=== PATIENT | female | born 1945 | race Caucasian/White ===

== ENCOUNTER → 2017-02-24 | Outpatient (CLI) | payer MEDICARE ==
[~2017-02-24] MED LIST: SYNTHROID50 MCG PO
--- NOTE | 2017-02-24 11:51 | Diagnostic Imaging Report ---
PROCEDURE: Frontal and lateral views of the chest. COMPARISON: None. INDICATIONS: COUGH, PNEUMONIA FINDINGS: Lines/tubes: None. Lungs: Mild bilateral perihilar and peribronchial thickening and perihilar streaky densities. 6 mm noncalcified nodule in the right lung base laterally. Pleura: There is no pleural effusion or pneumothorax. Heart and mediastinum: The cardiac silhouette is mildly enlarged. calcification of aortic arch. Bones: No acute bony abnormality. DJD of glenohumeral joint bilaterally. Multilevel spondylosis of the thoracic spine. IMPRESSION: 1. Findings suggestive of a mild infection versus reactive airway disease. No consolidative pneumonia. 2. 6 mm noncalcified nodule in the right lung base. Recommend followup chest PA and lateral views in 3 months to evaluate stability. Caitlin Rosenberg M.D. Dictated by: Caitlin Rosenberg M.D. on 02/24/2017 at 12:00 Electronically approved by: Caitlin Rosenberg M.D. on 02/24/2017 at 12:00
== END ==
LOC: RAD 10:37
PROVIDERS: ATTEND Internal Medicine
DX: R05 Cough (principal)
CPT/HCPCS: 71020

== ENCOUNTER 2017-03-04 10:47 | Inpatient (IN) | payer MEDICARE, OTHER ==
[~2017-03-04] VITALS: Ht 167.6 cm; Wt 74.8 kg
[2017-03-04 13:01] LABS: INR 0.9; PROTHROMBIN TIME 12.6 seconds (11.9-14.5)
[2017-03-04 13:02] LABS: PARTIAL THROMBOPLASTIN TIME 20.6 seconds (23.8-35.5)
[2017-03-04 13:21] LABS: CREATINE KINASE MB 0.5 ng/mL (0.00-5.00)
[2017-03-04 13:37] LABS: BILIRUBIN,URINE NEGATIVE (NEGATIVE); KETONES,URINE NEGATIVE (NEGATIVE); LEUKOCYTE ESTERASE ,URINE 2+ (NEGATIVE); NITRITE,URINE NEGATIVE (NEGATIVE); URINE UROBILINOGEN 0.2 mg/dL (0.2 - 1)
[2017-03-04 13:41] LABS: CLARITY,URINE CLOUDY (CLEAR); COLOR,URINE YELLOW (YELLOW); PROTEIN,URINE DIPSTICK 1+ (NEGATIVE)
[2017-03-04 13:42] LABS: AMORPHOUS SEDIMENT,URINE RARE (FEW); BACTERIA,URINE RARE /HPF; EPITHELIAL CELLS,URINE FEW /LPF; MUCUS,URINE RARE (RARE)
[2017-03-04 14:35] LABS: BASOPHILS % 0.3 % (0.0-1.0); EOSINOPHILS % 0.2 % (0.0-6.0); HEMATOCRIT 42.6 % (34.2-44.1); HEMOGLOBIN 14.7 g/dL (12.0-16.0); LYMPHOCYTES # (AUTO) 2.4 (1.0-3.2); LYMPHOCYTES % 17.8 % (18.0-39.1); MEAN CORPUSCULAR HEMOGLOBIN 28.5 pg (28-32); MEAN CORPUSCULAR HGB CONC 34.5 g/dL (31-35); MEAN CORPUSCULAR VOLUME 82.7 fL (81-99); MONOCYTES # (AUTO) 0.6 (0.2-0.8); MONOCYTES % 4.5 % (4.4-11.3); NEUTROPHILS # (AUTO) 10.5 (2.1-6.9); NEUTROPHILS % 76.7 % (38.7-80.0); PLATELET COUNT 278 x10e3/uL (140-360); RED BLOOD COUNT 5.15 x10e6/uL (3.6-5.1); RED CELL DISTRIBUTION WIDTH 13.5 % (11.7-14.4)
[2017-03-04 14:45] LABS: ALANINE AMINOTRANSFERASE 21 IU/L (0-55); ALBUMIN 3.5 g/dL (3.5-5.0); ALBUMIN/GLOBULIN RATIO 0.8 (0.8-2.0); ALKALINE PHOSPHATASE 104 IU/L (40-150); ANION GAP 16.6 mmol/L (8-16); BLOOD UREA NITROGEN 17 mg/dL (7-26); BUN/CREATININE RATIO 23 (6-25); CALCIUM 9.8 mg/dL (8.4-10.2); CARBON DIOXIDE 24 mmol/L (22-29); CHLORIDE 104 mmol/L (98-107); CREATININE, SERUM 0.74 mg/dL (0.57-1.11); EST GLOMERULAR FILTRATION RATE > 60 ML/MIN (60-); GLUCOSE 181 mg/dL (74-118); POTASSIUM 3.6 mmol/L (3.5-5.1); SODIUM 141 mmol/L (136-145)
--- NOTE | 2017-03-04 15:58 | Diagnostic Imaging Report ---
PROCEDURE: CT scan of the chest WITH intravenous contrast, using standard protocol. TECHNIQUE: The chest was scanned utilizing a multidetector helical scanner from the lung apex through the level of the adrenal glands after the IV administration of 100 cc of Isovue 370. Coronal and sagittal multiplanar reformations were obtained. COMPARISON: Patients [facility], , CHEST 2 VIEWS, 02/24/2017, 11:13. INDICATIONS: NODULE FINDINGS: Lines/tubes: None. Lungs and Airways: 5 mm calcified granuloma in the lateral right lower lobe, corresponding to the abnormality seen on recent chest x-ray. No pulmonary nodules, masses, or consolidation. Linear opacities in the lingula and posterior right middle lobe likely represents scarring (Series 3, images 68 and 75). Airways are clear, without endobronchial lesions. Pleura: The pleural spaces are clear. Heart and mediastinum: Moderate enlargement of the thyroid gland, with heterogeneous enhancement (for example, series 2, image 10). Borderline to mild cardiomegaly. Atherosclerotic calcification of the coronary arteries and thoracic aorta. Aorta is not aneurysmal. Main pulmonary artery is normal in caliber. Lymph nodes: No mediastinal, hilar, or axillary adenopathy. Abdomen: Limited contrast-enhanced views of the upper abdomen show no abnormality within the visualized spleen or left kidney. Diffuse hepatic steatosis. No focal lesions. The visualized portions of the adrenal glands are normal. Bones: No aggressive lytic lesion. Multilevel degenerative disc changes in the thoracic spine. Sclerotic nonaggressive appearing foci in the right humeral head, which may reflect bone islands or sequela of prior surgery or trauma. IMPRESSION: 1. 5 mm calcified nodule in the lateral right lower lobe, corresponding to the abnormalities seen on recent chest x-ray. Lungs are otherwise unremarkable. 2. Diffuse hepatic steatosis. 3. Borderline to mild cardiomegaly. Callum Tavarez M.D. Dictated by: Callum Tavarez M.D. on 03/04/2017 at 16:06 Electronically approved by: Callum Tavarez M.D. on 03/04/2017 at 16:06
--- NOTE | 2017-03-04 16:35 | Diagnostic Imaging Report ---
History:Dizziness, right eye droop Comparison studies:None Technique: Axial images were obtained from the skull base to the vertex. Coronal and sagittal images reconstructed from the axial data. Intravenous contrast: None Findings: Scalp/skull: No abnormalities. Extra-axial spaces: No masses. No fluid collections. Brain sulci: Mildly prominent. Ventricles: Mild compensatory dilatation. No hydrocephalus. Parenchyma: A vague 7 mm round hypodense focus in the medial aspect of the tegmentum of the right midbrain is not associated with hemorrhage, calcifications or mass effect. Subtle hypodensities in the supratentorial white matter are small vessel ischemic changes. No masses, hemorrhage, acute or chronic cortical vascular insults. Sellar/suprasellar region: No abnormalities. Craniocervical junction: Patent foramen magnum. No Chiari one malformation. Incidental findings: Atherosclerotic calcifications in the carotid siphons . Impression: Recommend a brain MRI with and without contrast to determine whether a 7 mm round hypodense focus in the medial aspect of the tegmentum of the right is an acute vascular insult. Chronic findings: 1. Mild generalized volume loss. 2. Mild supratentorial white matter small vessel ischemic changes. Signed by: Dr. Portillo Amin M.D. on 03/04/2017 4:32 PM
[2017-03-04] MEDS ORDERED: ONDANSETRON HCL INJ 2 MG/ML VIAL IV PRN (20:45)
[2017-03-04] MEDS ORDERED: IOPAMIDOL 370 MG/ML 200 ML INFUS..BTL INJ ONE (21:34)
[2017-03-04] MEDS ORDERED: SODIUM CHLORIDE 0.9% 50ML 50 ML ONE (21:34)
[2017-03-05] VITALS (7 sets, daily range): BP systolic 151–170; BP diastolic 72–89
[2017-03-05] MEDS: SODIUM CHLORIDE 0.9% 1000ML 1,000 ML IV SCH ×4 (01:58→20:31)
[2017-03-05] MEDS ORDERED: SYNTHROID50 MCG PO (03:48)
--- NOTE | 2017-03-05 07:47 | History and Physical ---
This is a 72-year-old female that comes in with failed outpatient treatment of bronchitis, came in and was found to have some right eye ptosis too. CT scan showed a mass affect on the brain. Patient admitted for MRI of the brain with and without contrast, and also bronchitis treatment and also found to have some UTI. PAST MEDICAL HISTORY: History of hypothyroidism. Patient takes levothyroxine and Synthroid 50 mcg a day. That is the only medication she takes. No other medical history. SURGICAL HISTORY: History of ulnar and radius break, joint replacement of right hip in 2001, and she also has macular degeneration of the left eye. Patient's other surgeries include hysterectomy and orthopedic surgeries. FAMILY HISTORY: History of sister with cardiac disease, otherwise normal. REVIEW OF SYSTEMS: Negative for chest pain. Positive for shortness of breath. Positive for wheezing. Positive for coughing. No nausea, vomiting or diarrhea. No constipation. No rectal bleeding. No hematochezia and no hematemesis. No diplopia. No blurry vision. Positive for ptosis on the right eye. PHYSICAL EXAMINATION GENERAL: Patient is alert and oriented times 3. VITAL SIGNS: Temperature is 97.3, blood pressure 157/76, pulse ox 90% on room air, respiratory rate 18. HEENT: Normocephalic and atraumatic. Right eye droop. Pupils equal, round and reactive to light and accommodation. CV: S1 and S2 normal. Regular rate and rhythm. ABDOMEN: Nontender and nondistended. LUNGS: Positive for few inspiratory wheezes. ABDOMEN: Nontender and nondistended. EXTREMITIES: No clubbing. No cyanosis. No edema. NEUROLOGICAL: Cranial nerves are normal. Normal strength in all muscle groups. Reflexes are normal. Positive for ptosis of the right eye. LABORATORY FINDINGS: White count is 13,000 with a hemoglobin of 14.7, hematocrit 42, lymphocyte count of 17.2. Chemistry shows sodium of 141, potassium 3.6, glucose 181. Creatinine kinase was 16. Urine showed some leukocyte esterase and few wbcs. It was cloudy. Urine culture is pending. IMAGING: On chest CT, patient had a pulmonary nodule. It was confirmed to be in the same place, 5 mm, calcified, diffuse hepatic steatosis and also mild cardiomegaly also noted. On CT of the brain, there is mild generalized volume loss and mild supratentorial white matter small ischemic disease. There is also a 7 mm round hypodense foci in the medial aspect of the tegmentum on the right. Questionable acute vascular insult. PLAN 1. Will go ahead and order MRI of the brain with and without contrast to delineate the lesion. 2. Continue her home medication of levothyroxine for hypothyroidism. 3. Will give her some breathing treatments and treatments to help with her breathing, and also she has been started on Macrobid for UTI pending cultures. Further recommendations per clinical course. Will continue to monitor the patient. Job#: [id number] JIMMY
[2017-03-05] MEDS: NITROFURANTOIN MACROCRYSTALS 100 MG CAP PO SCH ×2 (09:14→18:32)
[2017-03-05] MEDS ORDERED: GADOBENATE DIMEGLUMINE 1 ML IV ONE (10:42)
--- NOTE | 2017-03-05 12:13 | Diagnostic Imaging Report ---
Exam: MRI brain with and without contrast History: Dizziness, right-sided drop Comparison studies: CT brain, 03/04/2017 Technique: Brain: Multiplanar, multisequence images of the brain were performed before and after the demonstration of intravenous contrast Intravenous contrast: 14 mL MultiHance Findings: Brain: Scalp: No abnormal signal. No masses. Bone marrow: Normal in signal intensity. Brain sulci: Mildly prominent . Ventricles: Normal in size . No hydrocephalus. Parenchyma: * DWI hyperintensity with resolving ADC hypointensity in the right midbrain tegmentum (series 3 image 16) and corresponds to the hypodensity seen on the recent CT brain. No hemorrhagic conversion. No associated contrast enhancement. * Mild FLAIR hyperintensities in the periventricular supratentorial white matter present chronic small vessel ischemic changes. Suprasellar region: No abnormalities. Craniocervical junction: No abnormalities. Patent foramen magnum. No Chiari one malformation Vessels: Normal flow-voids in the arteries and sinuses. Incidental: Mild mucosal thickening in the bilateral paranasal sinuses. Bilateral lens prostheses are present. Impression: Acute/early subacute infarct in the right midbrain corresponding to hypodensity seen on the comparison CT. No hemorrhagic transformation or associated enhancement. Findings discussed with Dr. Browning at 12:12 PM 03/05/2017 via telephone. The preliminary report was reviewed and a final report issued by Dr. Roberts neuroradiologist on 03/05/2017 at 3:56 PM. Signed by: Dr. Tonya Roberts M.D. on 03/05/2017 3:57 PM
[2017-03-05] MEDS: ASPIRIN 325 MG TAB PO SCH (18:32)
[2017-03-05] MEDS: GUAIFENESIN/CODEINE 10 ML CUP PO PRN (20:31)
[2017-03-06] VITALS (8 sets, daily range): BP systolic 141–181; BP diastolic 67–94
[2017-03-06] MEDS: GUAIFENESIN/CODEINE 10 ML CUP PO PRN ×3 (00:40→08:53)
[2017-03-06] MEDS: SODIUM CHLORIDE 0.9% 1000ML 1,000 ML IV SCH (05:08)
[2017-03-06 08:18] LABS: BASOPHILS % 0.4 % (0.0-1.0); EOSINOPHILS # (AUTO) 0.1 (0.0-0.4); EOSINOPHILS % 1.9 % (0.0-6.0); HEMATOCRIT 36.7 % (34.2-44.1); HEMOGLOBIN 12.4 g/dL (12.0-16.0); LYMPHOCYTES # (AUTO) 1.8 (1.0-3.2); LYMPHOCYTES % 25.4 % (18.0-39.1); MEAN CORPUSCULAR HEMOGLOBIN 28.5 pg (28-32); MEAN CORPUSCULAR HGB CONC 33.8 g/dL (31-35); MEAN CORPUSCULAR VOLUME 84.4 fL (81-99); MONOCYTES # (AUTO) 0.4 (0.2-0.8); MONOCYTES % 5.6 % (4.4-11.3); NEUTROPHILS # (AUTO) 4.6 (2.1-6.9); NEUTROPHILS % 66.3 % (38.7-80.0); PLATELET COUNT 198 x10e3/uL (140-360); RED BLOOD COUNT 4.35 x10e6/uL (3.6-5.1); RED CELL DISTRIBUTION WIDTH 13.7 % (11.7-14.4)
[2017-03-06] MEDS: NITROFURANTOIN MACROCRYSTALS 100 MG CAP PO SCH ×2 (08:53→17:16)
[2017-03-06] MEDS: ASPIRIN 325 MG TAB PO SCH (08:53)
[2017-03-06 10:47] LABS: BLOOD UREA NITROGEN 12 mg/dL (7-26); BUN/CREATININE RATIO 20 (6-25); CALCIUM 8.8 mg/dL (8.4-10.2); CARBON DIOXIDE 23 mmol/L (22-29); CHLORIDE 108 mmol/L (98-107); CREATININE, SERUM 0.59 mg/dL (0.57-1.11); EST GLOMERULAR FILTRATION RATE > 60 ML/MIN (60-); GLUCOSE 101 mg/dL (74-118); SODIUM 144 mmol/L (136-145)
[2017-03-06 11:02] LABS: CHOL/HDL RATIO 4.9 (3.0-3.6)
[2017-03-06] MEDS: AMLODIPINE BESYLATE 5 MG TAB PO SCH (12:44)
[2017-03-06] MEDS ORDERED: FUROSEMIDE INJ 10 MG/ML 2 ML VIAL IV ONE (13:00)
[2017-03-06] MEDS: ATORVASTATIN 20 MG TAB PO SCH (21:42)
[2017-03-07] VITALS: BP 146/71
[2017-03-07 04:00] VITALS: BP 143/73
[2017-03-07] MEDS: CEFTRIAXONE SOD 1 GM VIAL IV SCH (06:22)
[2017-03-07 08:00] VITALS: BP 138/65
[2017-03-07] MEDS: SODIUM CHLORIDE 0.9% 1000ML 1,000 ML IV SCH ×3 (08:05→20:16)
[2017-03-07] MEDS: AMLODIPINE BESYLATE 5 MG TAB PO SCH (08:49)
[2017-03-07] MEDS: ASPIRIN 325 MG TAB PO SCH (08:49)
[2017-03-07] MEDS: NITROFURANTOIN MACROCRYSTALS 100 MG CAP PO SCH ×2 (08:49→17:12)
[2017-03-07 12:00] VITALS: BP 145/68
[2017-03-07 16:00] VITALS: BP 159/88
[2017-03-07 20:00] VITALS: BP 150/86
[2017-03-07] MEDS: ATORVASTATIN 20 MG TAB PO SCH (20:02)
[2017-03-08] VITALS: BP 138/73
[2017-03-08 04:00] VITALS: BP 139/77
[2017-03-08] MEDS: CEFTRIAXONE SOD 1 GM VIAL IV SCH (05:10)
[2017-03-08] MEDS: GUAIFENESIN/CODEINE 10 ML CUP PO PRN ×2 (05:17→22:37)
[2017-03-08 08:00] VITALS: BP 130/77
[2017-03-08] MEDS: AMLODIPINE BESYLATE 5 MG TAB PO SCH (08:39)
[2017-03-08] MEDS: METHYLPREDNISOLONE SOD SUCC 40 MG/ML VIAL IV SCH ×2 (08:39→22:24)
[2017-03-08] MEDS: NITROFURANTOIN MACROCRYSTALS 100 MG CAP PO SCH ×2 (08:39→16:43)
[2017-03-08] MEDS: ASPIRIN 325 MG TAB PO SCH (08:39)
[2017-03-08 12:00] VITALS: BP 149/70
[2017-03-08 16:00] VITALS: BP 130/69
[2017-03-08 20:00] VITALS: BP 122/69
[2017-03-08] MEDS: ATORVASTATIN 20 MG TAB PO SCH (22:24)
[2017-03-09] VITALS: BP 136/87
[2017-03-09 01:18] VITALS: BP 136/87
[2017-03-09 04:00] VITALS: BP 120/71
[2017-03-09] MEDS: CEFTRIAXONE SOD 1 GM VIAL IV SCH (05:54)
[2017-03-09 08:30] VITALS: BP 141/74
[2017-03-09] MEDS: AMLODIPINE BESYLATE 5 MG TAB PO SCH (09:03)
[2017-03-09] MEDS: NITROFURANTOIN MACROCRYSTALS 100 MG CAP PO SCH (09:03)
[2017-03-09] MEDS: ASPIRIN 325 MG TAB PO SCH (09:03)
[2017-03-09] MEDS: METHYLPREDNISOLONE SOD SUCC 40 MG/ML VIAL IV SCH (09:03)
[2017-03-09 11:00] VITALS: BP 143/74
--- NOTE | 2017-03-09 13:23 | Consultation ---
DATE OF CONSULTATION: March 05, 2017 NEUROLOGY CONSULTATION HISTORY OF PRESENT ILLNESS: Ms. Art is a 72-year-old right-hand dominant woman with a past medical history significant for thyroid disease, who presented to [facility] on March 04, 2017, with multiple symptoms, including right lid ptosis. Ms. Art states the right lid ptosis began abruptly approximately 6 days ago. There are no other symptoms associated with the right lid ptosis. Specifically, Ms. Art does not endorse impairment of extraocular movements, blurred vision, double vision, loss of vision, facial droop, dysarthria, or aphasia. Furthermore, the patient does not report hemiparesis, hemihypoesthesia, impairment of gait, or balance. The patient does endorse dizziness, which she further describes as a lightheaded sensation. She attributes this to an antibiotic, or antibiotics, she was taking this past week for a upper respiratory infection. In addition to the above symptoms, Ms. Art has experienced shortness of breath, a nonproductive cough, and pain in the chest and throat over the past several days. She saw her primary care physician shortly after the onset of these symptoms, and was prescribed levofloxacin and oral steroids. The levofloxacin caused dizziness, so this medication was discontinued by her primary care physician, and replaced with Bactrim. However, Ms. Art only took 1 dose of Bactrim. She developed the right lid ptosis on the same day she took the Bactrim. She attributed the right lid ptosis to the Bactrim, and thus discontinued that medication. While in the emergency center, the patient underwent a CT of the brain without contrast which revealed a hypodensity in the right midbrain. Ms. Art was admitted to [facility] for further evaluation and treatment. REVIEW OF SYSTEMS: Ms. Art endorses ptosis as described in the history of present illness. She endorses hearing loss and tinnitus, both of which are chronic. She endorses chest pain as discussed in the history of present illness. She endorses shortness of breath and a nonproductive cough as discussed in the history of present illness as well. Ms. Art endorses 1 episode of diarrhea, urinary urgency, and easy bruising. Otherwise, a 12-point review of systems was negative. PAST MEDICAL HISTORY: Hypothyroidism, sarcoidosis, and occasional headaches. Ms. Art was previously overweight, but has lost 50 pounds over the past 2 years. The patient has a prior history of blood clots while on hormone replacement therapy. PAST SURGICAL HISTORY: Partial hysterectomy in February either 1979 or 1980. The patient has been hospitalized for fractures in the right forearm or wrist, as well as the left forearm twice. She has undergone a right total hip replacement. She previously underwent a left ulnar nerve transposition. PAST HOSPITALIZATIONS: Other than for surgical procedures, Ms. Art has been hospitalized 7 times for childbirth. With her last , the patient was hospitalized for a prolonged period of time due to severe anemia requiring treatment with iron transfusions. FAMILY HISTORY: Ms. Art does not know the medical history of her father's side of the family. Her maternal grandfather had coronary artery disease, multiple strokes and multiple myocardial infarctions. He from a myocardial infarction in 1962. Her maternal grandmother is from electrocution. Her mother in an auto accident. A younger sister is , presumably from heart failure. None of the patient's 7 children have any significant medical problems. SOCIAL HISTORY: The patient attended some college after obtaining her GED. She is currently retired. However, while working, the patient performed predominately office work. Ms. Art is . She does not report current or prior use of tobacco or alcohol. The patient does acknowledge remote use of marijuana. MEDICATIONS: The patient's only prescription medication is Synthroid 125 micrograms by mouth every morning. In addition to this medication, the patient takes a multivitamin daily, a vitamin for her eyes twice daily, an iron supplement daily, a fish oil supplement daily, and aspirin 81 mg by mouth daily. ALLERGIES: NO KNOWN DRUG ALLERGIES. NO KNOWN FOOD ALLERGIES. MS. ART DOES NOT REPORT AN ALLERGY TO LATEX OR CONTRAST MATERIAL. PHYSICAL EXAMINATION VITAL SIGNS: Height 5 feet 6 inches, weight 161 pounds, BMI 26, blood pressure 157/76 mmHg, pulse 77 beats per minute, respiratory rate 16 breaths per minute, oxygen saturation 95% on room air. GENERAL: The patient is awake, alert, and does not appear distressed. HEENT: Normocephalic, atraumatic. Pupils are surgical and briskly reactive to light. Moist mucous membranes. NECK: Supple. No appreciable thyromegaly. No appreciable carotid bruits. CARDIOVASCULAR: S1 and S2. Regular rate and rhythm. No murmurs, rubs or gallops. RESPIRATORY: Clear to auscultation bilaterally. No wheezes, rhonchi or rales. EXTREMITIES: No clubbing, cyanosis or edema. The posterior tibial and dorsalis pedis pulses are 2+ and symmetric. SKIN: Warm and dry. No rashes or lesions. NEUROLOGIC: Memory and attention: The patient is awake and alert, and oriented to person, place, time, and situation. Cranial nerves: Cranial nerve I is not tested. Cranial nerves II, III, IV, and : Moderate to severe right lid ptosis. Pupils are surgical and briskly reactive to light (from 4 mm to 2 mm). Otherwise, extraocular movements are intact. No nystagmus. Cranial nerve V: Sensation to light touch and pinprick is intact in the bilateral V1-V3 distributions. Strength of the temporalis and masseter muscles is within normal limits. Cranial nerve VII: The face is symmetric as are all facial movements. Strength is within normal limits. Cranial nerve VIII: Hearing is intact to finger rub bilaterally. Cranial nerves IX and X: The soft palate elevates equally and symmetrically. Cranial nerve XI: Normal strength of the bilateral sternocleidomastoid and trapezius muscles. Cranial nerve XII: The tongue protrudes midline and moves symmetrically from side to side. STRENGTH: Bulk is normal. Strength is 5/5 in the bilateral deltoids, biceps, triceps, wrist flexors and extensors, finger flexors and extensors, intrinsic hand muscles, hip flexors, knee flexors and extensors, ankle dorsiflex and plantar flexion, and intrinsic foot muscles. Tone is normal. DTRS: Deep tendon reflexes are 2+ and symmetric at the triceps, biceps, brachioradialis, and patellas. The Achilles reflexes are absent. Plantar responses are flexor bilaterally. Absent clonus. SENSATION: Intact to light touch and pinprick in both arms and both legs. CEREBELLAR: Vzqecf-emcm-wuvuad and heel-adan movements are intact without dysmetria or other impairment. GAIT: Not assessed as the patient is at risk for falls. SPEECH: Spontaneous speech is mildly dysarthric without appreciable aphasia. Repetition is intact. INVOLUNTARY MOVEMENTS: None. Pronator drift none. LABORATORY DATA: Sodium 141, potassium 3.6, chloride 104, carbon dioxide 24, anion gap 16.6, BUN 17, creatinine 0.74, estimated GFR greater than 60. BUN to creatinine ratio 23. Glucose 181. Hemoglobin A1c 5.6. Calcium 9.8. Total bilirubin 0.4, AST 16, ALT 21, alkaline phosphatase 104, creatinine kinase 16, CK-MB 0.5, troponin I 0.012, total protein 8, albumin 3.5, globulin 4.5. Albumin to globulin ratio is 0.8. White blood cell count is 13.67 with a differential of 76.7% neutrophils, 17.8% lymphocytes, 4.5% monocytes, 0.2% eosinophils, and 0.3% basophils. Hemoglobin is 14.7, hematocrit 42.6 and platelet count is 278,000. PT 12.6, INR 0.9 and PTT 20.6. Influenza types A, B antigen negative. Urinalysis: Urine is cloudy with 1+ protein, 1+blood, 2+leukocyte esterase, 6-10 red blood cells, and 11-20 white blood cells. IMAGING: CT of the Brain without Contrast on March 04, 2017: On my review, there is a hypodensity in the right midbrain. MRI of the brain with and without contrast on March 05, 2017: On my review, there is hyperintensity of the right midbrain on the DWI sequence with corresponding hypointensity on the ADC sequence. These findings indicate an acute to subacute ischemic stroke in the right midbrain. There are scattered nonspecific T2/FLAIR hyper-intensities compatible with mild chronic small vessel ischemic disease. ASSESSMENT AND PLAN: Ms. Art is a 72-year-old right-hand dominant woman with a past medical history as described above, who presented to [facility] on March 04, 2017, with, among other symptoms, right lid ptosis. Her neurological examination is significant for a partial right cranial nerve III palsy as evidenced by right lid ptosis with intact extraocular movements and pupil sparing. Ms. Art's laboratory data and neuroimaging have been reviewed and are documented above. Ms. 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 She will require a complete stroke evaluation to first identify and then maximize treatment of all vascular risk factors. PLAN 1. Bilateral carotid artery ultrasounds have been ordered. Follow up on the result. 2. Echocardiogram has been ordered. Follow up on result. 3. A lipid panel has been ordered and is pending. The current cholesterol recommendations for a stroke patient include total cholesterol less than 200 and an LDL less than or equal to 70. Even if Ms. Art is not found to have high cholesterol, treatment with a cholesterol lowering medication has been shown to confer additional protection against stroke. As such, treatment with a low-dose statin should be initiated regardless of the results of the lipid panel. 4. Hemoglobin A1c is 5.6. The recommended hemoglobin A1c in a stroke patient is less than or equal to 7. No further treatment is necessary at this time. 5. Dr. Orr has prescribed aspirin 325 mg by mouth daily for stroke prophylaxis. Agree with this treatment. 6. With regards to the patient's blood pressure, her goal blood pressure is 140/90 mmHg while in the hospital. As an outpatient, lifestyle factors and medications will be adjusted to achieve a blood pressure less than 130/70 mmHg. 7. GI prophylaxis. Ms. Art is tolerating oral intake. Therefore, GI prophylaxis is not necessary. 8. DVT prophylaxis. The patient is ambulatory, so chemical DVT prophylaxis is not necessary. 9. Treatment of the patient's remaining medical comorbidities is deferred to the primary and other services following the patient. Thank you for this consultation. The neurology service will continue to follow the patient along with you. Time spent 70 minutes. Job#: [id number] JIMMY HOLLY
[2017-03-09 16:10] VITALS: BP 126/76
--- NOTE | 2017-04-29 10:16 | Discharge Summary ---
DISCHARGE DIAGNOSES 1. Stroke of the right midbrain. 2. Hyperlipidemia. HISTORY OF PRESENT ILLNESS AND HOSPITAL COURSE: See hospital chart for full details. Patient is a lady who presented with some dizziness and ptosis of the right eye where she was found to have a midbrain stroke on MRI. Carotids were negative. Echo showed an EF of 60%. She was seen by neurology. She was placed on her aspirin and lipid medication. At the time of discharge, she was feeling fine. She was still having ptosis of the right, but there was some slight improvement. She will know to continue with her exercise, and she will follow up with me in 1-2 weeks. Please see hospital chart for full details. SAMMY CORRALES MD Job#: [id number] [place]
== END 2017-03-09 17:12 | disposition home or self-care (01) | DRG 65 ==
LOC: ER 10:47 → ERHOLD 20:47 → MED/SURG2 22:50
PROVIDERS: ADMIT Internal Medicine; ATTEND Internal Medicine
DX: I63.9 Cerebral infarction, unspecified (principal); N39.0 Urinary tract infection, site not specified; K76.0 Fatty (change of) liver, not elsewhere classified; H02.401 Unspecified ptosis of right eyelid; E03.9 Hypothyroidism, unspecified; Z79.52 Long term (current) use of systemic steroids; I10 Essential (primary) hypertension; J40 Bronchitis, not specified as acute or chronic; G93.9 Disorder of brain, unspecified; D63.8 Anemia in other chronic diseases classified elsewhere
CPT/HCPCS: 36415; 70450; 70553; 71260; 80048; 80053; 80061; 81001; 82550; 82553; 83036; 84484; 85025; 85610; 85730; 87086; 87400; 93005; 93306; 93880; 97139; 99284; J0696; J1940; J2920; J7030; Q9967

== ENCOUNTER → 2020-10-10 | Day surgery (SDC) | payer MEDICARE ==
[2020-10-07 11:47] LABS: BASOPHILS % 0.6 % (0.0-1.0); EOSINOPHILS # (AUTO) 0.1 (0.0-0.4); EOSINOPHILS % 1.8 % (0.0-6.0); HEMATOCRIT 44.2 % (34.2-44.1); HEMOGLOBIN 14.7 g/dL (12.0-16.0); LYMPHOCYTES # (AUTO) 1.8 (1.0-3.2); LYMPHOCYTES % 26.3 % (18.0-39.1); MEAN CORPUSCULAR HEMOGLOBIN 28.4 pg (28-32); MEAN CORPUSCULAR HGB CONC 33.3 g/dL (31-35); MEAN CORPUSCULAR VOLUME 85.3 fL (81-99); MONOCYTES # (AUTO) 0.5 (0.2-0.8); MONOCYTES % 7.4 % (4.4-11.3); NEUTROPHILS # (AUTO) 4.3 (2.1-6.9); NEUTROPHILS % 63.6 % (38.7-80.0); PLATELET COUNT 223 x10e3/uL (140-360); RED BLOOD COUNT 5.18 x10e6/uL (3.6-5.1); RED CELL DISTRIBUTION WIDTH 13.8 % (11.7-14.4)
[2020-10-07 12:20] LABS: ALBUMIN 3.7 g/dL (3.5-5.0); ALBUMIN/GLOBULIN RATIO 0.9 (0.8-2.0); ANION GAP 15.4 mmol/L (8-16); CALCIUM 9.5 mg/dL (8.4-10.2); CREATININE, SERUM 0.75 mg/dL (0.57-1.11); POTASSIUM 3.4 mmol/L (3.5-5.1)
[~2020-10-10] MED LIST changes: +AMLODIPINE BESYL5 MG PO; +AMLODIPINE BESYLATE 5 MG TAB PO SCH; +ASPIRIN325 MG PO; +BUPIVACAINE 0.25% 30ML SDV ONE; +HYDROCODONE/APAP 7.5MG-325MG 1 EA TAB PO PRN; +HYDROMORPHONE 1MG/1ML INJ IV PRN; +KETOROLAC TROMETHAMINE 30 MG/ML VIAL IV PRN; +LIDOCAINE 1% W/EPINEPHRINE 20 ML VIAL ONE; +OMEGA-31000 MG PO; +ONDANSETRON HCL INJ 2MG/ML 2ML 2 MG/ML VIAL IV PRN; +PANTOPRAZOLE SOD 40 MG TABEC PO SCH; +PRESERVISION A1 EACH PEG; +PROTONIX20 MG PO; +SODIUM CHLORIDE 0.9% 1000ML 1,000 ML IV SCH
[2020-10-10 10:30] VITALS: BP 145/73
== END | disposition home or self-care (01) ==
LOC: OR 06:22
PROVIDERS: ATTEND Surgery
DX: L72.0 Epidermal cyst (principal); E03.9 Hypothyroidism, unspecified; I10 Essential (primary) hypertension; D64.9 Anemia, unspecified; Z01.810 Encounter for preprocedural cardiovascular examination; Z01.812 Encounter for preprocedural laboratory examination; Z01.818 Encounter for other preprocedural examination; Z20.822 Contact with and (suspected) exposure to COVID-19; Z79.82 Long term (current) use of aspirin; Z86.73 Personal history of transient ischemic attack (TIA), and cerebral infarction without residual deficits; Z86.711 Personal history of pulmonary embolism
CPT/HCPCS: 23071; 36415; 71046; 80053; 85025; 88304; 93005; U0002

== ENCOUNTER 2021-06-14 13:15 | Emergency (ER) | payer MEDICARE ==
[~2021-06-14] VITALS: Ht 167.6 cm; Wt 74.8 kg
[~2021-06-14 13:15] MED LIST changes: -AMLODIPINE BESYLATE 5 MG TAB PO SCH; -BUPIVACAINE 0.25% 30ML SDV ONE; -HYDROCODONE/APAP 7.5MG-325MG 1 EA TAB PO PRN; -HYDROMORPHONE 1MG/1ML INJ IV PRN; -KETOROLAC TROMETHAMINE 30 MG/ML VIAL IV PRN; -LIDOCAINE 1% W/EPINEPHRINE 20 ML VIAL ONE; -ONDANSETRON HCL INJ 2MG/ML 2ML 2 MG/ML VIAL IV PRN; -PANTOPRAZOLE SOD 40 MG TABEC PO SCH; -SODIUM CHLORIDE 0.9% 1000ML 1,000 ML IV SCH
[2021-06-14 13:42] LABS: CLARITY,URINE CLEAR (CLEAR); COLOR,URINE YELLOW (YELLOW); KETONES,URINE 1+ (NEGATIVE); LEUKOCYTE ESTERASE ,URINE TRACE (NEGATIVE); NITRITE,URINE NEGATIVE (NEGATIVE); PROTEIN,URINE DIPSTICK 2+ (NEGATIVE)
[2021-06-14 13:46] LABS: BACTERIA,URINE MANY /HPF; EPITHELIAL CELLS,URINE MODERATE /LPF; WBC,URINE (MAN) 21-50 /HPF (0-5)
[2021-06-14] MEDS ORDERED: SODIUM CHLORIDE 0.9% 1000ML 1,000 ML IV ONE (14:00)
[2021-06-14 14:03] LABS: BASOPHILS % 0.2 % (0.0-1.0); EOSINOPHILS % 0.4 % (0.0-6.0); HEMATOCRIT 36.9 % (34.2-44.1); HEMOGLOBIN 12.7 g/dL (12.0-16.0); LYMPHOCYTES # (AUTO) 1.9 (1.0-3.2); LYMPHOCYTES % 18.9 % (18.0-39.1); MEAN CORPUSCULAR HEMOGLOBIN 28.7 pg (28-32); MEAN CORPUSCULAR HGB CONC 34.4 g/dL (31-35); MEAN CORPUSCULAR VOLUME 83.3 fL (81-99); MONOCYTES # (AUTO) 0.7 (0.2-0.8); MONOCYTES % 7.6 % (4.4-11.3); NEUTROPHILS # (AUTO) 7.1 (2.1-6.9); NEUTROPHILS % 72.4 % (38.7-80.0); PLATELET COUNT 188 x10e3/uL (140-360); RED BLOOD COUNT 4.43 x10e6/uL (3.6-5.1); RED CELL DISTRIBUTION WIDTH 13.7 % (11.7-14.4)
[2021-06-14 14:21] LABS: ALBUMIN 2.4 g/dL (3.5-5.0); ALBUMIN/GLOBULIN RATIO 0.5 (0.8-2.0); ANION GAP 13.8 mmol/L (8-16); CALCIUM 8.4 mg/dL (8.4-10.2); CREATININE, SERUM 0.79 mg/dL (0.57-1.11)
[2021-06-14 14:34] LABS: POTASSIUM 2.8 mmol/L (3.5-5.1)
[2021-06-14] MEDS ORDERED: POTASSIUM CHLORIDE 20 MEQ TAB CR PO STA (14:39)
[2021-06-14] MEDS ORDERED: CEFTRIAXONE 1 GM VIAL ONE (15:02)
[2021-06-14 15:55] VITALS: BP 144/60
== END 2021-06-14 16:01 | disposition home or self-care (01) ==
LOC: ER 14:02
DX: R33.9 Retention of urine, unspecified (principal); N39.0 Urinary tract infection, site not specified; E87.6 Hypokalemia; I10 Essential (primary) hypertension; Z96.641 Presence of right artificial hip joint
CPT/HCPCS: 36415; 51702; 80053; 81001; 83735; 85025; 87040; 87086; 87186; 99284; J0696; J7030; 51700

== ENCOUNTER 2024-10-08 11:07 | Inpatient (IN) | payer MEDICARE ==
[~2024-10-08] VITALS: Ht 167.6 cm; Wt 74.8 kg
[2024-10-08 11:15] VITALS: TEMP 97.6
[2024-10-08] MEDS ORDERED: ONDANSETRON HCL INJ 2MG/ML 2ML 2 MG/ML VIAL ONE (11:43)
[2024-10-08] MEDS: SODIUM CHLORIDE 0.9% 1000ML 1,000 ML IV STA (11:51)
[2024-10-08] MEDS: ONDANSETRON HCL INJ 2MG/ML 2ML 2 MG/ML VIAL IV STA (11:52)
[2024-10-08] MEDS: MECLIZINE HCL 12.5 MG TAB PO ONE (11:53)
[2024-10-08 12:02] LABS: BASOPHILS % 0.5 % (0.0-1.0); EOSINOPHILS % 0.5 % (0.0-6.0); LYMPHOCYTES % 23.2 % (18.0-39.1); MONOCYTES % 6.2 % (4.4-11.3); NEUTROPHILS % 69.4 % (38.7-80.0); RED CELL DISTRIBUTION WIDTH 14.7 % (11.7-14.4)
[2024-10-08 12:21] LABS: INR 0.92
[2024-10-08 12:29] LABS: EST GLOMERULAR FILTRATION RATE 88.0 ML/MIN (>=60)
[2024-10-08] MEDS ORDERED: SODIUM CHLORIDE 0.9% 100 ML ONE (12:38)
[2024-10-08] MEDS ORDERED: IOPAMIDOL 370 MG/ML 100 ML INFUS..BTL INJ ONE (12:38)
[2024-10-08] MEDS ORDERED: ONDANSETRON HCL INJ 2MG/ML 2ML 2 MG/ML VIAL IV PRN (13:00)
[2024-10-08] MEDS ORDERED: Morphine 2mg Syringe 2 MG/ML SYR IV PRN (13:00)
[2024-10-08] MEDS ORDERED: MECLIZINE HCL 12.5 MG TAB PO PRN (13:00)
[2024-10-08 14:44] VITALS: PULSE 78; RESP 18
[2024-10-08 16:15] VITALS: BP 139/69; PULSE 84; RESP 18; TEMP 98.2; O2SAT 97
[2024-10-08 19:31] VITALS: BP 135/66; PULSE 58; RESP 18; TEMP 98.4; O2SAT 97
[2024-10-08 20:00] VITALS: BP 135/66; PULSE 58; RESP 18; TEMP 98.4; O2SAT 97
[2024-10-08 23:19] VITALS: BP 138/57; PULSE 62; RESP 18; TEMP 98.3; O2SAT 96
[2024-10-09 03:14] VITALS: BP 148/65; PULSE 63; RESP 18; TEMP 97.8; O2SAT 96
[2024-10-09] MEDS: PANTOPRAZOLE SOD 40 MG TABEC PO SCH (05:44)
[2024-10-09] MEDS: LEVOTHYROXINE SODIUM 50 MCG TAB PO SCH (05:44)
[2024-10-09 06:07] LABS: BASOPHILS % 0.5 % (0.0-1.0); EOSINOPHILS % 1.3 % (0.0-6.0); LYMPHOCYTES % 25.5 % (18.0-39.1); MONOCYTES % 7.8 % (4.4-11.3); NEUTROPHILS % 64.6 % (38.7-80.0); RED CELL DISTRIBUTION WIDTH 15.0 % (11.7-14.4)
[2024-10-09] MEDS ORDERED: LEVOTHYROXINE SODIUM 50 MCG TAB PO SCH (06:30)
[2024-10-09 06:39] LABS: CHOL/HDL RATIO 5.3 (3.0-3.6); EST GLOMERULAR FILTRATION RATE 88.0 ML/MIN (>=60); LDL CHOLESTEROL 127.0 MG/DL (60-130)
[2024-10-09 08:14] VITALS: BP 131/62; PULSE 60; RESP 19; TEMP 98.4; O2SAT 95
[2024-10-09] MEDS: ASPIRIN 81 MG ENTERIC COATED PO SCH (08:54)
[2024-10-09] MEDS: AMLODIPINE BESYLATE 5 MG TAB PO SCH (08:54)
[2024-10-09 10:00] VITALS: BP 131/62; PULSE 60; RESP 19; TEMP 98.4; O2SAT 95
[2024-10-09 14:19] VITALS: BP 137/51; PULSE 62; RESP 18; TEMP 98.1; O2SAT 96
[2024-10-09 16:51] VITALS: BP 127/62; PULSE 61; RESP 18; TEMP 99.4; O2SAT 96
[2024-10-09] MEDS: ENOXAPARIN SOD INJ 40 MG/0.4 ML SYR SC SCH (16:53)
[2024-10-09 20:00] VITALS: BP 137/56; PULSE 58; RESP 18; TEMP 97.9; O2SAT 100
[2024-10-09] MEDS ORDERED: ASPIRIN 325 MG TAB PO SCH (21:00)
[2024-10-10] VITALS (7 sets, daily range): BP systolic 114–151; BP diastolic 55–65; PULSE 56–65; RESP 16–18; TEMP 97.5–98.1; O2SAT 97–100
[2024-10-10] MEDS: MECLIZINE HCL 12.5 MG TAB PO SCH (05:27)
[2024-10-10] MEDS ORDERED: REGADENOSON 0.4 MG/5 ML SYR IV ONE (09:55)
[2024-10-10] MEDS: ACETAMINOPHEN 325 MG TAB PO PRN (16:38)
[2024-10-11] VITALS (7 sets, daily range): BP systolic 125–167; BP diastolic 53–65; PULSE 60–70; RESP 16–19; TEMP 97.4–99; O2SAT 95–100
[2024-10-11] MEDS: ATORVASTATIN 20 MG TAB PO SCH (21:09)
[2024-10-12] VITALS: BP 139/58; PULSE 61; RESP 18; TEMP 98; O2SAT 100
[2024-10-12 09:06] VITALS: BP 146/67; PULSE 60; RESP 19; TEMP 98; O2SAT 98
[2024-10-12 12:58] VITALS: BP 112/59; PULSE 70; RESP 19; TEMP 98.2; O2SAT 99
== END 2024-10-12 16:30 | disposition home or self-care (01) | DRG 149 ==
LOC: ER 11:29 → ERHOLD 12:55 → MED/SURG3 16:18
PROVIDERS: ADMIT Internal Medicine; ATTEND Internal Medicine
DX: R42 Dizziness and giddiness (principal); K21.9 Gastro-esophageal reflux disease without esophagitis; E03.9 Hypothyroidism, unspecified; H55.00 Unspecified nystagmus; M17.9 Osteoarthritis of knee, unspecified; M47.9 Spondylosis, unspecified; M19.019 Primary osteoarthritis, unspecified shoulder; R94.31 Abnormal electrocardiogram [ECG] [EKG]; R07.89 Other chest pain; I10 Essential (primary) hypertension; E78.00 Pure hypercholesterolemia, unspecified; R06.02 Shortness of breath; Z79.82 Long term (current) use of aspirin; Z79.890 Hormone replacement therapy
CPT/HCPCS: 36415; 70496; 70498; 71045; 78452; 80053; 80061; 82550; 83690; 83735; 84443; 84484; 85025; 85610; 85730; 93005; 93017; 93306; 99284; A9502; J1650; J2405; J2470; J7030; J7050; Q9967